=== PATIENT | female | born 1965 | race Caucasian/White ===

== ENCOUNTER 2021-09-08 11:54 | Emergency (ER) | payer OTHER ==
[2021-09-08 13:51] LABS: BASOPHIL 0.5 % (0-2); EOSINOPHIL 1.1 % (0-5); HCT 43.6 % (37.0-47.0); HGB 14.3 g/dl (12.5-16.0); LYMPHOCYTE 22.9 % (15-48); MCH 29.4 pg (25.0-31.0); MCHC 32.8 g/dL (32.0-36.0); MCV 89.7 fL (78.0-100.0); MONOCYTE 5.4 % (0-12); MPV 11.3 fL (6.0-9.5); NEUTROPHIL 69.8 % (41-80); NRBC 0; PLT 200 K/uL (150-400); RBC 4.86 M/uL (4.20-5.40); RDW 13.5 % (11.5-14.0); WBC 10.2 K/uL (4.0-10.5)
[2021-09-08 14:09] LABS: LACTIC ACID 1.1 mmol/L (0.4-1.9)
[2021-09-08 14:26] LABS: BILIRUBIN NEGATIVE (NEGATIVE); BLOOD NEGATIVE Ery/uL (NEGATIVE); CLARITY CLEAR (CLEAR); COLOR YELLOW (YELLOW); GLUCOSE (U) NORMAL (NORMAL); LEUKOCYTES 1+ Leu/uL (NEGATIVE); NITRITE NEGATIVE (NEGATIVE); PROTEIN NEGATIVE (NEGATIVE); UROBILINOGEN 0.2 mg/dL (0.2-1.0)
[2021-09-08 14:50] LABS: BACTERIA TRACE
[2021-09-08 14:56] LABS: BILIRUBIN - TOTAL 0.6 mg/dL (0.2-1.0); BUN/CREAT RATIO (CALC) 13.5 RATIO; C-REACTIVE PROTEIN 1.5 mg/dL (<=0.90); CREATININE 0.74 mg/dL (0.51-0.95); GLOBULIN (CALCULATION) 3.8 g/dL; MAGNESIUM 2.1 mg/dL (1.8-2.4); POTASSIUM 3.2 mmol/L (3.5-5.1); TOTAL PROTEIN 7.8 g/dL (6.4-8.2)
[2021-09-08 15:40] LABS: INR 1.08 (0.9-1.2); PROTHROMBIN TIME 13.4 SECONDS (11.8-13.4)
[2021-09-08] MEDS ORDERED: ONDANSETRON ODT4 MG PO (16:30)
[2021-09-08] MEDS ORDERED: METRONIDAZOLE500 MG PO (16:30)
== END 2021-09-08 19:16 | disposition home or self-care (01) ==
LOC: FER 11:54
PROVIDERS: Emergency Medicine
DX: K62.5 Hemorrhage of anus and rectum (principal); K52.9 Noninfective gastroenteritis and colitis, unspecified; Z88.1 Allergy status to other antibiotic agents; Z20.822 Contact with and (suspected) exposure to COVID-19
CPT/HCPCS: 36415; 80053; 81001; 82728; 83605; 83615; 83735; 84145; 85025; 85610; 86140; J1170; J2405; J7030; Q9967; U0002